=== PATIENT | female | born 1970 | race African-American/Black ===

== ENCOUNTER 2017-04-18 20:10 | Emergency (ER) | payer MEDICAID ==
[~2017-04-18] VITALS: Ht 162.6 cm; Wt 75.0 kg
[2017-04-18 20:13] VITALS: BP 148/65
== END 2017-04-19 03:30 | disposition left against medical advice (07) ==
LOC: ER 20:28
DX: Z53.21 Procedure and treatment not carried out due to patient leaving prior to being seen by health care provider (principal)
CPT/HCPCS: 93005; Z7610